=== PATIENT | female | born 1950 | race Two or more races ===

== ENCOUNTER 2016-12-26 12:57 | Emergency (ER) | payer OTHER ==
[2016-12-26 14:01] LABS: Basophils # (auto) 0 uL; Basophils % (auto) 0.4 % (0.0-2.0); CONDITION Y; Eosinophils # (auto) 0.2 uL; Eosinophils % (auto) 2.6 % (0.0-7.0); Hematocrit 38.5 % (36.0-46.0); Hemoglobin 13.1 g/dL (12.2-16.2); Lymphocytes # (auto) 1.9 uL; Lymphocytes % (auto) 25.2 % (10.0-50.0); Mean Corpuscular Hemoglobin 29.1 pg (28.0-32.0); Mean Corpuscular Volume 85.6 fL (80.0-100.0); Mean Platelet Volume 10.9 fL (7.4-10.4); Monocytes # (auto) 0.6 uL; Monocytes % (auto) 7.4 % (0.0-12.0); Neutrophils # (auto) 4.9 uL; Neutrophils % (auto) 64.4 % (37.0-80.0); Platelet Count (auto) 208 10^3/uL (140-450); Red Cell Distribution Width 13.1 % (11.6-16.0); White Blood Cell 7.6 10^3/uL (4.4-10.8)
[2016-12-26 14:28] LABS: Albumin 3.8 g/dL (3.4-5.0); Alkaline Phosphatase 146 U/L (45-117); Anion Gap 9 (5-15); Aspartate Aminotransferase 11 U/L (15-37); BUN/Creatinine Ratio 20.8; Bilirubin, Total 0.6 mg/dL (0.2-1.0); Blood Urea Nitrogen 15 mg/dL (7-18); Calcium 9.2 mg/dL (8.5-10.1); Carbon Dioxide 29 mmol/L (21-32); Chloride 100 mmol/L (98-107); GFR African American 105 mL/min; GFR Non-African American 86 mL/min; Glucose 164 mg/dL (74-106); Potassium 3.9 mmol/L (3.5-5.1); Sodium 138 mmol/L (136-145)
[2016-12-26] MEDS ORDERED: KETOROLAC TROMETH 60MG/2ML VIAL IM ONE (17:15)
[2016-12-26 17:22] VITALS: BP 143/60
== END 2016-12-26 18:10 | disposition home or self-care (01) ==
LOC: ER 12:57
DX: S16.1XXA Strain of muscle, fascia and tendon at neck level, initial encounter (principal); I25.10 Atherosclerotic heart disease of native coronary artery without angina pectoris; E11.9 Type 2 diabetes mellitus without complications; I10 Essential (primary) hypertension; E78.5 Hyperlipidemia, unspecified; Z88.0 Allergy status to penicillin; X58.XXXA Exposure to other specified factors, initial encounter; Y93.89 Activity, other specified; Y99.8 Other external cause status; Y92.89 Other specified places as the place of occurrence of the external cause
CPT/HCPCS: 36415; 71020; 80053; 83735; 84484; 85025; 93005; 96372; 99285; J1885

== ENCOUNTER 2016-12-28 08:51 | Emergency (ER) | payer OTHER ==
[~2016-12-28] VITALS: Ht 160 cm; Wt 63.5 kg
[2016-12-28 10:01] LABS: Basophils # (auto) 0 uL; Basophils % (auto) 0.5 % (0.0-2.0); CONDITION Y; Eosinophils # (auto) 0.2 uL; Eosinophils % (auto) 2.4 % (0.0-7.0); Hematocrit 36.3 % (36.0-46.0); Hemoglobin 12.2 g/dL (12.2-16.2); Lymphocytes # (auto) 1.6 uL; Lymphocytes % (auto) 21.9 % (10.0-50.0); Mean Corpuscular Hemoglobin 29.5 pg (28.0-32.0); Mean Corpuscular Hgb Conc. 33.6 g/dL (32.0-36.0); Mean Corpuscular Volume 87.7 fL (80.0-100.0); Mean Platelet Volume 10.9 fL (7.4-10.4); Monocytes # (auto) 0.5 uL; Neutrophils # (auto) 5.1 uL; Neutrophils % (auto) 68.2 % (37.0-80.0); Platelet Count (auto) 207 10^3/uL (140-450); Red Cell Distribution Width 13.3 % (11.6-16.0); White Blood Cell 7.4 10^3/uL (4.4-10.8)
[2016-12-28 10:22] LABS: Albumin 3.7 g/dL (3.4-5.0); Alkaline Phosphatase 132 U/L (45-117); Anion Gap 7 (5-15); Aspartate Aminotransferase 14 U/L (15-37); BUN/Creatinine Ratio 26.9; Bilirubin, Total 0.4 mg/dL (0.2-1.0); Blood Urea Nitrogen 21 mg/dL (7-18); Calcium 9.1 mg/dL (8.5-10.1); Carbon Dioxide 29 mmol/L (21-32); Chloride 102 mmol/L (98-107); GFR African American 95 mL/min; GFR Non-African American 79 mL/min; Glucose 101 mg/dL (74-106); Potassium 4.2 mmol/L (3.5-5.1); Sodium 138 mmol/L (136-145)
[2016-12-28] MEDS ORDERED: SIMV-8 PO (10:37)
[2016-12-28] MEDS ORDERED: ASPI81CH59 PO (10:37)
[2016-12-28] MEDS ORDERED: METF-372 PO (10:37)
[2016-12-28] MEDS ORDERED: HCTZ25T PO (10:37)
[2016-12-28] MEDS ORDERED: INSUINJ2 SC (10:37)
[2016-12-28] MEDS ORDERED: TRAM50TA2 PO (10:37)
[2016-12-28] MEDS ORDERED: POTA10TA34 PO (10:37)
[2016-12-28] MEDS ORDERED: ASPirin 81 mg TAB PO ONE (11:15)
[2016-12-28 13:11] VITALS: BP 142/77
== END 2016-12-28 13:12 | disposition home or self-care (01) ==
LOC: ER 08:51
DX: R07.9 Chest pain, unspecified (principal); F41.9 Anxiety disorder, unspecified; I10 Essential (primary) hypertension; E11.9 Type 2 diabetes mellitus without complications; E78.5 Hyperlipidemia, unspecified; Z88.0 Allergy status to penicillin; Z79.4 Long term (current) use of insulin; Z79.82 Long term (current) use of aspirin; I25.10 Atherosclerotic heart disease of native coronary artery without angina pectoris
CPT/HCPCS: 36415; 71020; 80053; 84484; 85025; 93005

== ENCOUNTER 2023-06-08 11:28 | Emergency (ER) | payer OTHER, MEDICAID ==
[~2023-06-08] VITALS: Ht 154.9 cm; Wt 64.6 kg
[~2023-06-08 11:28] MED LIST: ASPI81CH59 PO; HYDR25TA5 PO; INSUINJ2 SC; METF-372 PO; POTA1TAB61 PO; SIMV20TA20 PO; TRAM50TA2 PO
[2023-06-08 12:11] LABS: Urine Bacteria NONE SEEN /hpf (None Seen); Urine Blood Negative /uL (Negative); Urine Clarity Clear (Clear); Urine Mucus FEW (None Seen); Urine Protein, UAD Negative (Negative); Urine Specific Gravity 1.027 (1.001-1.035); Urine Urobilinogen Normal (Negative); Urine WBC 6 /hpf (0 - 5)
[2023-06-08 12:14] LABS: Urine Color STRAW (Yellow)
[2023-06-08 13:05] LABS: Chloride 104 mmol/L (98-107); Potassium 4.1 mmol/L (3.5-5.1); Sodium 140 mmol/L (136-145)
[2023-06-08 13:06] LABS: Anion Gap 10 (5-15); Calcium 9.4 mg/dL (8.5-10.1); Carbon Dioxide 26 mmol/L (20-30)
[2023-06-08 13:09] LABS: Basophils # (auto) 0.1 10 ^3/uL (0-0.2); Basophils % (auto) 0.8 % (0.0-2.0); Eosinophils # (auto) 0.1 10 ^3/uL (0-0.8); Eosinophils % (auto) 1.4 % (0.0-7.0); Hematocrit 38.9 % (36.0-46.0); Hemoglobin 13.2 g/dL (12.2-16.2); Lymphocytes # (auto) 1.9 10 ^3/uL (0.4-5.4); Lymphocytes % (auto) 24.3 % (10.0-50.0); Mean Corpuscular Hemoglobin 30.4 pg (28.0-32.0); Mean Corpuscular Volume 89.5 fL (80.0-100.0); Monocytes # (auto) 0.4 10 ^3/uL (0-1.3); Monocytes % (auto) 5.6 % (0.0-12.0); Neutrophils # (auto) 5.4 10 ^3/uL (1.6-8.6); Neutrophils % (auto) 67.9 % (37.0-80.0); Nucleated Red Blood Cells % 0.1 %; Red Blood Cells 4.34 10^6/uL (4.0-5.20); Red Cell Distribution Width 13.3 % (11.8-14.3)
[2023-06-08 13:11] LABS: BUN/Creatinine Ratio 19.3 (10.0-20.0); Blood Urea Nitrogen 17 mg/dL (9-23); Glucose 220 mg/dL (74-106)
[2023-06-08 16:45] LABS: INR 1.03 (0.9-1.15); Partial Thromboplastin Time 32.6 SEC (24.5-34.5); Prothrombin Time 10.8 sec (9.3-11.8)
[2023-06-08 17:00] VITALS: PULSE 95; RESP 18; O2SAT 97
[2023-06-08] MEDS ORDERED: SODIUM CHL 0.9% IV ONE (17:15)
[2023-06-08] MEDS ORDERED: DESMOPRESSIN IV ONE (17:15)
[2023-06-08 17:35] VITALS: BP 168/81; PULSE 95; RESP 16; TEMP 98.3; O2SAT 97
== END 2023-06-08 17:57 | disposition short-term general hospital (02) ==
LOC: ER 11:28
DX: R41.82 Altered mental status, unspecified (principal); I61.8 Other nontraumatic intracerebral hemorrhage; I10 Essential (primary) hypertension; E78.5 Hyperlipidemia, unspecified; E11.9 Type 2 diabetes mellitus without complications; Z88.0 Allergy status to penicillin
CPT/HCPCS: 36415; 70450; 80048; 81001; 82962; 85025; 85610; 85730; 99285; J2597